=== PATIENT | male | born 1970 | race Caucasian/White ===

== ENCOUNTER 2021-04-21 07:53 | Observation (INO) | payer MEDICARE ==
[2021-04-18 10:37] LABS: Hematocrit 39.7 % (35.5-45.6); Mean Corpuscular HGB Conc 35 % (32-34); Mean Corpuscular Volume 82 fl (84-94); Platelet Count 193 K/mm3 (140-440); Red Blood Count 4.86 M/mm3 (3.65-5.03); Red Cell Distribution Width 13.8 % (13.2-15.2)
--- NOTE | 2021-04-18 10:39 | Anesthesia Consultation ---
Anesthesia Consult and Med Hx Date of service: 04/21/21 - Airway Anesthetic Teeth Evaluation: Crowns (Implants) ROM Head & Neck: Adequate Mental/Hyoid Distance: Adequate Mallampati Class: Class II Intubation Access Assessment: Probably Good - Pre-Operative Health Status ASA Pre-Surgery Classification: ASA3 Proposed Anesthetic Plan: General - Pulmonary Hx Smoking: No Hx Asthma: Yes (INHALER PRN- RARE USE) Hx Respiratory Symptoms: No (+2FS) Hx Sleep Apnea: No (JEANNE PRE SCREEN HIGH RISK) - Cardiovascular System Hx Hypertension: No Hx Peripheral Vascular Disease: Yes (Pt had LLE venous procedure recently and LLE is swollen) - Central Nervous System Hx Back Pain: Yes (CHRONIC) Hx Psychiatric Problems: Yes (Anxiety) - Gastrointestinal Hx Gastroesophageal Reflux Disease: No (Colostomy) - Endocrine Hx Renal Disease: Yes (HX RT NEPHRECTOMY. Neurogenic bladder) Hx End Stage Renal Disease: No (Hx stones) Hx Liver Disease: Yes (LIVER RESECTION DUE TO METS FROM CANCER) - Hematic Hx Anemia: Yes - Other Systems Hx Cancer: Yes (Colon) Hx Obesity: Yes - Additional Comments Anesthesia Medical History Comments: +Medical clearance
[2021-04-18 10:44] LABS: Alanine Aminotransferase 17 units/L (7-56); Albumin 4.1 g/dL (3.9-5); BUN/Creatinine Ratio 18; Blood Urea Nitrogen 20 mg/dL (9-20); Calcium 8.8 mg/dL (8.4-10.2); Hemolysis Index 10
[~2021-04-21 07:53] MED LIST: ACETAMINOPHEN 500 MG TAB PO SCH; CELECOXIB 200 MG CAP PO NR; MAGNESIUM OXIDE 400 MG TAB PO SCH; MIDAZOLAM 2 MG/2 ML INJ IV NR
[2021-04-21] MEDS ORDERED: ONDANSETRON 4 MG/2 ML INJ IV PRN ×2 (09:37→12:12)
--- NOTE | 2021-04-21 09:37 | Anesthesia Day of Surgery ---
Anesthesia Day of Surgery - Day of Surgery Patient Examined: Yes Patient H&P Reviewed: Yes Patient is NPO: Yes
[2021-04-21] MEDS: LACTATED RINGERS 1,000 ML IV SCH ×2 (09:55→21:39)
[2021-04-21] MEDS ORDERED: NEOMY 40 MG/POLYMYXIN B 200,000 UNITS/ML (GU) AMPULE IR ONE ×2 (10:05→11:11)
[2021-04-21] MEDS ORDERED: SODIUM CHLORIDE 0.9% 500 ML 500 ML ONE (10:05)
[2021-04-21] MEDS ORDERED: rifAMPin 600 MG VIAL ONE (10:05)
[2021-04-21] MEDS ORDERED: GENTAMICIN 40 MG/ML VIAL 2 ML ONE (10:05)
[2021-04-21] MEDS ORDERED: BUPIVACAINE/PF (0.5%) 5 MG/1 ML 30 ML VIAL INFILTRATI ONE ×2 (10:05→11:11)
[2021-04-21] MEDS ORDERED: SODIUM CHLORIDE P/F VIAL 10 ML 10 ML ONE (10:06)
[2021-04-21] MEDS ORDERED: LIDOCAINE MPF (2%) 20 MG/1 ML VIAL 5 ML ONE (10:08)
[2021-04-21] MEDS ORDERED: fentaNYL 100 MCG/2 ML INJ ONE (10:08)
[2021-04-21] MEDS ORDERED: propofoL 200 MG/20 ML VIAL IV ONE (10:08)
[2021-04-21] MEDS ORDERED: VANCOMYCIN/NS 1 GM/250 ML 1 GM/250 ML BAG IV NR (10:17)
[2021-04-21] MEDS ORDERED: GENTAMICIN/NS 80 MG/100 ML 100 ML IV NR (10:19)
[2021-04-21] MEDS ORDERED: VANCOMYCIN 1,500 MG in SODIUM CHLORIDE 0.9% 500 ML 500 ML IV NR (10:30)
[2021-04-21] MEDS ORDERED: ePHEDrine SULFATE 50 MG/1 ML INJ ONE (11:05)
[2021-04-21] MEDS ORDERED: ONDANSETRON 4 MG/2 ML INJ ONE (11:05)
[2021-04-21] MEDS ORDERED: SODIUM CHLORIDE 0.9% P/F 10 ML VIAL INFILTRATI ONE (11:10)
[2021-04-21] MEDS ORDERED: SODIUM CHLORIDE 0.9% IRR 1,500 ML BOTTLE IR ONE (11:10)
[2021-04-21] MEDS ORDERED: rifAMPin 600 MG VIAL IV ONE (11:11)
[2021-04-21] MEDS ORDERED: GENTAMICIN 40 MG/ML VIAL 2 ML IV ONE (11:12)
[2021-04-21] MEDS ORDERED: ACETAMINOPHEN 325 MG TAB PO PRN (12:12)
[2021-04-21] MEDS ORDERED: NALOXONE 0.4 MG/1 ML INJ IV PRN (12:12)
[2021-04-21] MEDS ORDERED: ZOLPIDEM 5 MG TAB PO PRN (12:12)
--- NOTE | 2021-04-21 12:12 | Short Stay Summary ---
Short Stay Documentation Date of service: 04/21/21 - History H&P: obtained from office - Allergies and Medications Current Medications: Allergies No Known Allergies Allergy (Verified 10/09/16 08:37) Home Medications Medication Instructions Recorded Confirmed Last Taken Type Albuterol Sulfate [Ventolin HFA] 2 puff IH Q4H PRN #1 hfa.aer.ad 10/09/16 04/16/21 04/20/21 Rx diazePAM [Diazepam] 10 mg PO PRN PRN 04/16/21 04/16/21 04/20/21 History oxyCODONE [roxiCODONE] 5 mg PO Q6HR PRN 04/16/21 04/16/21 04/20/21 History Active Medications Acetaminophen (Acetaminophen 500 Mg Tab) 1,000 mg PO ONCE LEWIS Stop: 04/21/21 21:00 Last Admin: 04/21/21 09:55 Dose: 1,000 mg Documented by: Celecoxib (Celecoxib 200 Mg Cap) 200 mg PO PREOP NR Stop: 04/21/21 21:00 Last Admin: 04/21/21 09:50 Dose: 200 mg Documented by: Hydromorphone HCl (Hydromorphone 1 Mg/1 Ml Inj) 0.5 mg IV Q10MIN PRN PRN Reason: Pain , Severe (7-10) Stop: 04/21/21 23:00 Lactated Ringer's (Lactated Ringers) 1,000 mls @ 125 mls/hr IV DIRECT LEWIS Last Admin: 04/21/21 09:55 Dose: 125 mls/hr Documented by: Gentamicin Sulfate/Sodium Chloride (Gentamicin/Ns 80 Mg/100 Ml) 100 mls @ 200 mls/hr IV ONCE NR Stop: 04/21/21 20:00 Vancomycin HCl 1,500 mg/ (Sodium Chloride) 530 mls @ 333.333 mls/hr IV PREOP NR Stop: 04/21/21 13:00 Magnesium Oxide (Magnesium Oxide 400 Mg Tab) 400 mg PO ONCE LEWIS Stop: 04/21/21 21:00 Last Admin: 04/21/21 09:50 Dose: 400 mg Documented by: Midazolam HCl (Midazolam 2 Mg/2 Ml Inj) 2 mg IV PREOP NR Stop: 04/21/21 23:59 Last Admin: 04/21/21 09:57 Dose: 2 mg Documented by: Ondansetron HCl (Ondansetron 4 Mg/2 Ml Inj) 4 mg IV ONCE PRN PRN Reason: Nausea And Vomiting Stop: 04/21/21 20:00 - Brief post op/procedure progress note Date of procedure: 04/21/21 Pre-op diagnosis: impotence Post-op diagnosis: same Procedure: ipp (coloplast) marion, Anesthesia: GETA Surgeon: ADITHYA ALVAREZ Estimated blood loss: minimal Pathology: none Condition: stable - Hospital course Hospital course: pt has abx, pain meds post op info on chart dc meyers--done---dc home - Disposition Condition at discharge: Stable Short Stay Discharge Plan Follow up with: LESIA SANTANA MD [Primary Care Provider] - 7 Days
[2021-04-21] MEDS ORDERED: ALBUTEROL 8.5 GM MDI INHALATION IH PRN (12:16)
[2021-04-21] MEDS ORDERED: DIAZEPAM 10 MG PO PRN (12:16)
[2021-04-21] MEDS ORDERED: diazePAM 5 MG TAB PO PRN (12:24)
[2021-04-21] MEDS ORDERED: ALBUTEROL 2.5 MG/3 ML NEBU IH PRN (12:25)
[2021-04-21] MEDS: HYDROmorphone 1 MG/1 ML INJ IV PRN ×4 (12:35→14:40)
--- NOTE | 2021-04-21 13:00 | Operative Report ---
DATE OF SURGERY: 04/21/2021 PREOPERATIVE DIAGNOSIS: Erectile dysfunction. POSTOPERATIVE DIAGNOSIS: Erectile dysfunction. PROCEDURE: Insertion of inflatable penile prosthesis (coloplast) and injection of intracorporal pharmacologic agent. SURGEON: Jase Starr MD ANESTHESIA: General. DUMBWAITER OPERATOR: Alexus Hawley. ESTIMATED BLOOD LOSS: Minimal. FLUIDS: Crystalloid. COMPLICATIONS: No complications. INDICATIONS: This patient is a 51-year-old gentleman recently relocated from [place]. He had a history of colon cancer, status post colectomy and colostomy in 2019, also had a right nephrectomy. He also performs clean intermittent catheterization. He has had refractory erectile dysfunction, reviewed our video, presents now for surgical intervention. DESCRIPTION OF PROCEDURE: The patient was taken to the operative suite, placed in the supine position. After adequate general anesthesia, he was prepped and draped in a sterile fashion. Crouch catheter was placed on the operative field. 60 mL of 0.25% Marcaine was injected in the corporal body. No curvature or plaque could be appreciated. Transscrotal incision was made with a Bovie. Sharp dissection was taken down to the corporal bodies, which were visualized, 2-0 Vicryl stay sutures were placed in each corporal body. Corporotomy was made with the Bovie. Gentle dilation with Metzenbaum scissors as well as the measuring tool. Total of 22 cm bilaterally was noted; therefore, a 22 cm Coloplast Titan was placed. The reservoir was placed in an ectopic position. It was below the external oblique fascia, but above the transversalis fascia in light of his previous surgery. 110 mL of saline was placed prior to placement of 2-0 Vicryl, pursestring was placed around the external ring and was closed to reduce the risk of migration. The corporotomies were closed with 2-0 Vicryl in a running fashion. The insufflation of the cylinders were performed without difficulty, excellent response. He did have some scarring. You could hear the popping and cracking of the tissues, but has an excellent cosmetic appearance. The reservoir and pump was connected via the quick click connection system. Insufflation and deflation was performed again with an excellent response. Copious irrigation was performed. Adequate hemostasis was achieved. Pursestring suture was used to secure the pump in the dependent portion of the scrotum. 3-0 Monocryl was used on the skin. Mummy wrap and collodion was placed as well. Alexus Hawley was present at the bedside throughout the procedure to assist with surgical dissection. The patient tolerated the procedure well and was taken to the recovery room in stable condition. TID: [id number] RECEIPT: [id number] HOA/ELVA [place]
[2021-04-21] MEDS: SODIUM CHLORIDE 0.45% 1000 ML 1,000 ML IV SCH ×2 (15:44→23:20)
--- NOTE | 2021-04-21 16:25 | Post Anesthesia Evaluation ---
- Post Anesthesia Evaluation Patient Participated: Yes Airway Patent: Yes Stable Respiratory Function: Yes Nausea/Vomiting: No Temp > 96.8F: Yes Pain Manageable: Yes Adequeate Hydration: Yes Anesthesia Complications: No Other Comments: Awaiting bed availability.
[2021-04-21] MEDS: HYDROcodone/ACETAMINOPHEN 5-325 MG TAB PO PRN (18:48)
[2021-04-21] MEDS: MORPHINE 2 MG/1 ML INJ IV PRN ×2 (21:37→21:39)
[2021-04-21] MEDS: ceFAZolin/NS 1 GM/50 ML 1 GM/50 ML BAG IV SCH (21:38)
--- NOTE | 2021-04-22 00:53 | Consultation ---
History of Present Illness - Reason for Consult Consult date: 04/21/21 Medical management Requesting physician: ADITHYA ALVAREZ - History of Present Illness Patient is s/p IPP(inflatable penile prosthesis)--postop patient is doing well. No complaints. Medications and Allergies Allergies Allergy/AdvReac Type Severity Reaction Status Date / Time No Known Allergies Allergy Verified 10/09/16 08:37 Home Medications Medication Instructions Recorded Confirmed Last Taken Type Albuterol Sulfate [Ventolin HFA] 2 puff IH Q4H PRN #1 hfa.aer.ad 10/09/16 04/16/21 04/20/21 Rx diazePAM [Diazepam] 10 mg PO PRN PRN 04/16/21 04/16/21 04/20/21 History oxyCODONE [roxiCODONE] 5 mg PO Q6HR PRN 04/16/21 04/16/21 04/20/21 History Active Meds: Active Medications Acetaminophen (Acetaminophen 325 Mg Tab) 650 mg PO Q4H PRN PRN Reason: Pain MILD(1-3)/Fever >100.5/PADILLA Hydrocodone Bitart/Acetaminophen (Hydrocodone/Acetaminophen 5-325 Mg Tab) 2 each PO Q6H PRN PRN Reason: Pain, Moderate (4-6) Last Admin: 04/21/21 18:48 Dose: 2 each Documented by: Albuterol (Albuterol 2.5 Mg/3 Ml Nebu) 2.5 mg IH Q4HRT PRN PRN Reason: Shortness Of Breath Diazepam (Diazepam 5 Mg Tab) 10 mg PO QHS PRN PRN Reason: Insomnia Lactated Ringer's (Lactated Ringers) 1,000 mls @ 125 mls/hr IV DIRECT LEWIS Last Admin: 04/21/21 21:39 Dose: 125 mls/hr Documented by: Sodium Chloride (Nacl 0.45% 1000 Ml) 1,000 mls @ 100 mls/hr IV DIRECT LEWIS Last Admin: 04/21/21 23:20 Dose: 100 mls/hr Documented by: Cefazolin Sodium (Ancef/Ns 1 Gm/50 Ml) 1 gm in 50 mls @ 100 mls/hr IV Q8H LEWIS; Protocol Last Admin: 04/21/21 21:38 Dose: 100 mls/hr Documented by: Morphine Sulfate (Morphine 2 Mg/1 Ml Inj) 2 mg IV Q4H PRN PRN Reason: Pain, Moderate (4-6) Last Admin: 04/21/21 21:39 Dose: 2 mg Documented by: Naloxone HCl (Naloxone 0.4 Mg/1 Ml Inj) 0.1 mg IV Q2MIN PRN PRN Reason: Res Rate </= 8 or 02 SAT < 92% Ondansetron HCl (Ondansetron 4 Mg/2 Ml Inj) 4 mg IV Q8H PRN PRN Reason: Nausea And Vomiting Sodium Chloride (Sodium Chloride 0.9% 10 Ml Flush Syringe) 10 ml IV BID LEWIS Last Admin: 04/21/21 21:40 Dose: 10 ml Documented by: Sodium Chloride (Sodium Chloride 0.9% 10 Ml Flush Syringe) 10 ml IV PRN PRN PRN Reason: LINE FLUSH Zolpidem Tartrate (Zolpidem 5 Mg Tab) 5 mg PO QHS PRN PRN Reason: Insomnia Exam - Constitutional Vitals: Temp Pulse Resp BP Pulse Ox 97.7 F 68 20 123/74 94 04/21/21 23:47 04/21/21 23:47 04/22/21 00:12 04/21/21 23:47 04/22/21 00:12 General appearance: Present: no acute distress, well-nourished - EENT Eyes: Present: PERRL ENT: hearing intact, clear oral mucosa - Neck Neck: Present: supple, normal ROM - Respiratory Respiratory effort: normal Respiratory: bilateral: CTA - Cardiovascular Heart rate: 78 Rhythm: regular Heart Sounds: Present: S1 & S2. Absent: rub, click - Extremities Extremities: pulses symmetrical, No edema Peripheral Pulses: within normal limits - Abdominal General gastrointestinal: Present: soft, non-tender, non-distended, normal bowel sounds Male genitourinary: Present: normal - Integumentary Integumentary: Present: clear, warm, dry - Musculoskeletal Musculoskeletal: gait normal, strength equal bilaterally - Psychiatric Psychiatric: appropriate mood/affect, intact judgment & insight - Neurologic Neurologic: CNII-XII intact, moves all extremities Results - Labs CBC & Chem 7: 04/18/21 00:01 04/18/21 00:01 Assessment and Plan - Patient Problems (1) Status post surgery Current Visit: Yes Status: Acute Plan to address problem: Postop patient doing well (2) Asthma Current Visit: Yes Status: Chronic Qualifiers: Asthma severity: moderate Plan to address problem: Bronchodilators as needed (3) DVT prophylaxis Current Visit: Yes Status: Acute Plan to address problem: On heparin and GI prophylaxis
[2021-04-22] MEDS: MORPHINE 2 MG/1 ML INJ IV PRN ×2 (01:54→07:48)
[2021-04-22] MEDS: ceFAZolin/NS 1 GM/50 ML 1 GM/50 ML BAG IV SCH (03:36)
[2021-04-22] MEDS: HYDROcodone/ACETAMINOPHEN 5-325 MG TAB PO PRN (03:37)
[2021-04-22 08:54] VITALS: BP 113/62
== END 2021-04-22 11:32 | disposition home or self-care (01) ==
LOC: OR 07:53 → 3A 12:12 → 4A 16:55
PROVIDERS: ADMIT Urology; ATTEND Urology
DX: N52.01 Erectile dysfunction due to arterial insufficiency (principal); Z20.822 Contact with and (suspected) exposure to COVID-19; N20.0 Calculus of kidney; E29.1 Testicular hypofunction; J45.909 Unspecified asthma, uncomplicated
CPT/HCPCS: 36415; 54401; 80053; 85027; 96361; 96365; 96366; 96375; 96376; C1813; G0378; J0690; J1170; J1580; J2250; J2270; J2405; J2704; J3010; J3370; J3490; J7030; J7040; J7120; U0003

== ENCOUNTER 2021-05-09 16:20 | Emergency (ER) | payer MEDICARE ==
[2021-05-09] MEDS ORDERED: HYDROmorphone 1 MG/1 ML INJ IV ONE (17:06)
[2021-05-09] MEDS ORDERED: ONDANSETRON 4 MG/2 ML INJ IV ONE (17:06)
--- NOTE | 2021-05-09 17:11 | Emergency Department Report ---
ED Male HPI - General Chief complaint: Urogenital-Male Stated complaint: PRIAPRISM Time Seen by Provider: 05/09/21 17:01 Source: patient Mode of arrival: Stretcher Limitations: No Limitations - History of Present Illness Initial comments: Patient is a 51-year-old male who presents emergency room with complaints of priapism. Patient states he had a penile implant placed on April 23 and the implant has been erect since then. Patient states he called his urologist but the urologist has not given him any advice. Patient states he is here because the pain is so severe and is worsening. Patient dates the pain is a 10 out of 10. Patient states that the pain is worse with palpation and movement. Patient states the pain is better with remaining still and rest. Patient states he has tried to deflate the implant but is not going down. Patient denies chest pain. Patient denies nausea vomiting. Denies dysuria. Patient denies recent travel. Patient denies recent international travel. Patient denies exposure to the novel coronavirus. Patient denies sick contacts. Patient denies fever and chills. Patient denies cough. Patient denies d iarrhea. Patient denies coming in contact with anybody with symptoms of the novel coronavirus. Complaint: other - Related Data Home Medications Medication Instructions Recorded Confirmed Last Taken diazePAM [Diazepam] 10 mg PO PRN PRN 04/16/21 04/16/21 04/20/21 oxyCODONE [roxiCODONE] 5 mg PO Q6HR PRN 04/16/21 04/16/21 04/20/21 Previous Rx's Medication Instructions Recorded Last Taken Type Albuterol Sulfate [Ventolin HFA] 2 puff IH Q4H PRN #1 hfa.aer.ad 10/09/16 04/20/21 Rx Allergies Allergy/AdvReac Type Severity Reaction Status Date / Time No Known Allergies Allergy Verified 10/09/16 08:37 ED Review of Systems ROS: Stated complaint: PRIAPRISM Other details as noted in HPI Constitutional: denies: chills, fever Eyes: denies: eye pain, eye discharge, vision change ENT: denies: ear pain, throat pain Respiratory: denies: cough, shortness of breath, wheezing Cardiovascular: denies: chest pain, palpitations Endocrine: no symptoms reported Gastrointestinal: denies: abdominal pain, nausea, diarrhea Genitourinary: as per HPI, other. denies: urgency, dysuria Musculoskeletal: denies: back pain, joint swelling, arthralgia Skin: denies: rash, lesions Neurological: denies: headache, weakness, paresthesias Psychiatric: denies: anxiety, depression Hematological/Lymphatic: denies: easy bleeding, easy bruising ED Past Medical Hx - Past Medical History Previous Medical History?: Yes Hx Hypertension: No Hx Congestive Heart Failure: No Hx Diabetes: No Hx Liver Disease: Yes (LIVER RESECTION DUE TO METS FROM CANCER) Hx Renal Disease: Yes (HX RT NEPHRECTOMY. Neurogenic bladder) Hx of Cancer: Yes (Colon) Hx Asthma: Yes (INHALER PRN- RARE USE) Additional medical history: chronic back pain, - Surgical History Past Surgical History?: Yes Additional Surgical History: abdominal, penile implant - Family History Family history: no significant - Social History Smoking Status: Never Smoker Substance Use Type: None - Medications Home Medications: Home Medications Medication Instructions Recorded Confirmed Last Taken Type Albuterol Sulfate [Ventolin HFA] 2 puff IH Q4H PRN #1 hfa.aer.ad 10/09/16 04/16/21 04/20/21 Rx diazePAM [Diazepam] 10 mg PO PRN PRN 04/16/21 04/16/21 04/20/21 History oxyCODONE [roxiCODONE] 5 mg PO Q6HR PRN 04/16/21 04/16/21 04/20/21 History ED Physical Exam - General Limitations: No Limitations General appearance: alert, in no apparent distress - Head Head exam: Present: atraumatic, normocephalic - Eye Eye exam: Present: normal appearance - ENT ENT exam: Present: mucous membranes moist - Neck Neck exam: Present: normal inspection - Respiratory Respiratory exam: Present: normal lung sounds bilaterally. Absent: respiratory distress, wheezes, rales - Cardiovascular Cardiovascular Exam: Present: regular rate, normal rhythm. Absent: systolic murmur, diastolic murmur, rubs, gallop - GI/Abdominal GI/Abdominal exam: Present: soft, normal bowel sounds. Absent: distended, tenderness, guarding - Rectal Rectal exam: Present: deferred - exam: Present: other (Priapism noted. The release button was located in the patient's scrotum and attempts were made to deflate the system but with no success patient having tenderness to palpation.) - Extremities Exam Extremities exam: Present: normal inspection - Back Exam Back exam: Present: normal inspection - Neurological Exam Neurological exam: Present: alert, oriented X3 - Psychiatric Psychiatric exam: Present: normal affect, normal mood - Skin Skin exam: Present: warm, dry, intact, normal color. Absent: rash ED Course Vital Signs 05/09/21 05/09/21 05/09/21 17:45 18:01 18:10 Pulse Rate 98 H Respiratory 19 Rate Blood Pressure 126/79 116/59 O2 Sat by Pulse 97 95 Oximetry - Reevaluation(s) Reevaluation #1: Patient states pain is better. Patient dates he has pain meds at home does not need any more refills. I discussed all results and clinical findings with patient. I discussed plan of care with patient. Patient agrees with plan of care. Patient is stable for discharge. Patient will be discharged home. Patient given discharge instructions. Patient voiced understanding of discharge instructions. 05/09/21 18:15 - Consultations Consultation #1: Patient's urologist Dr. Starr and Dr. Starr was paged. 05/09/21 17:05 I discussed labs and case with Dr. Starr. Dr. Mirza states this is the normal course for a penile implant. Patient states he left the implant inflated partially and that this is normal postop pain. Since the patient has no white count and the patient is afebrile and has normal vital signs the patient is stable for discharge and can follow-up with Dr. Starr in his office. 05/09/21 18:10 ED Medical Decision Making - Lab Data Result diagrams: 05/09/21 17:17 05/09/21 17:17 - Medical Decision Making Patient is a 51-year-old male that presents emergency room with complaints of penile pain after having a penile implant placed. Patient states that penile implant is inflated and he cannot deflated. Patient had labs done which were essentially unremarkable. Patient did not have a white count. Patient had normal CBC. Patient has reassuring vital signs. Patient is afebrile. I discussed the case with Dr. Starr, the patient's personal urologist and Dr. Starr states the patient is stable for discharge and this is normal course and postop pain or a penile implant. Family states he left the penile implant partially inflated and that is normal. Patient had normal skin tone and normal temperature to touch of the penis. There was no circulation issues noted on exam. Patient has sufficient pain meds at home. Patient given discharge instructions. Patient not require any further inpatient or emergency room services and the patient discharged home. . - Differential Diagnosis Penile pain, implant pain, postop pain. Critical care attestation.: If time is entered above; I have spent that time in minutes in the direct care of this critically ill patient, excluding procedure time. ED Disposition Clinical Impression: Status post surgery, History of penile implant, S/P insertion of penile implant, Postoperative pain Disposition: - TO HOME OR SELFCARE Is pt being admited?: No Does the pt Need Aspirin: No Condition: Stable Instructions: Pain Relief Before and After Surgery, Pain Medicine Instructions Additional Instructions: Patient to follow-up with primary care in 2 to 3 days. Patient to follow-up with Dr. Starr, your urologist in 2 to 3 days. Patient to rest. Patient to increase water. Patient to avoid strenuous exercise or heavy lifting until cleared by urology and primary care. No sexual activity until cleared by urology.. Patient to take Tylenol or ibuprofen as needed for pain. Patient to continue all home medications. Patient to return to the ER if condition worsens, changes or new symptoms arise. Referrals: ADITHYA STARR MD [Staff Physician] - 2-3 Days Time of Disposition: 18:19
[2021-05-09 17:31] LABS: Hematocrit 36.3 % (35.5-45.6); Hemoglobin 12.8 gm/dl (11.8-15.2); Mean Corpuscular HGB Conc 35 % (32-34); Mean Corpuscular Volume 80 fl (84-94); Platelet Count 215 K/mm3 (140-440); Red Blood Count 4.55 M/mm3 (3.65-5.03); Red Cell Distribution Width 13.7 % (13.2-15.2)
[2021-05-09 17:57] LABS: Alanine Aminotransferase 28 units/L (7-56); Albumin 3.8 g/dL (3.9-5); BUN/Creatinine Ratio 17; Blood Urea Nitrogen 17 mg/dL (9-20); Calcium 9.2 mg/dL (8.4-10.2); Hemolysis Index 22
[2021-05-09 18:37] VITALS: BP 115/69
== END 2021-05-09 18:38 | disposition home or self-care (01) ==
LOC: ED 16:20
DX: G89.18 Other acute postprocedural pain (principal); J45.909 Unspecified asthma, uncomplicated; Z98.890 Other specified postprocedural states; Z79.899 Other long term (current) drug therapy
CPT/HCPCS: 36415; 80053; 85027; 96374; 96375; 99284; J1170; J2405